=== PATIENT | female | born 1980 | race Two or more races ===

== ENCOUNTER 2018-07-01 10:27 | Day surgery (SDC) | payer OTHER ==
[2018-06-30 10:29] VITALS: BMI 21.9
[2018-07-01] MEDS ORDERED: ONDANSETRON 4 MG/2 ML VIAL IVPUSH PRN (11:34)
[2018-07-01] MEDS ORDERED: oxyCODONE HCL 5 MG TABLET PO PRN ×2 (11:34)
[2018-07-01] MEDS ORDERED: MIDAZOLAM HCL 2 MG/2 ML SINGLE DOSE VIAL ONE ×2 (11:43→12:42)
[2018-07-01] MEDS ORDERED: PROPOFOL 20 ML ONE (11:43)
[2018-07-01] MEDS ORDERED: LACTATED RINGERS SOLUTION 1,000 ML IV SCH (11:45)
--- NOTE | 2018-07-01 12:40 | HP ---
Admitting History and Physical - Primary Care Physician PCP: Luis Lancaster - Admission Chief Complaint: LASHELL 1, HSIL on pap History Source: Patient Limitations to Obtaining History: No Limitations - Past Medical History [employer]: No: Alzheimer's, CVA, Dementia, Migraine, Multiple Sclerosis, Peripheral Neuropathy, Parkinson's, Seizure, Syncope, TIA, Vertigo, Other Cardiovascular: No: AFIB, Aneurysm, Aortic Insufficiency, Aortic Stenosis, CAD, CHF, Deep Vein Thrombosis, HTN, Hyperlipdemia, IA, Mitral Insufficiency, Mitral Stenosis, Murmur, Pulmonary Hypertension, Other Pulmonary: No: Asthma, Bronchitis, Cancer, COPD, O2 Dependent, Pneumonia, Previously Intubated, Pulmonary Embolus, Pulmonary Fibrosis, Sleep Apnea, Other Gastrointestinal: No: Ascites, Cancer, Constipation, Crohn's Disease, Diverticulitis, Diverticulosis, Esophageal Varices, Gastritis, GERD, GI Bleed, Hemorrhoids, Hiatal Hernia, Inflamatory Bowel Disease, Irritable Bowel Disease, Pancreatitis, Peptic Ulcer Disease, Ulcerative Colitis, Other Hepatobiliary: No: Cirrhosis, Cholelithiasis, Cholecystitis, Choledocholithiasis , Hepatitis A, Hepatitis B, Hepatitis C, Other Renal/: No: Renal Failure, Renal Inusuff, BPH, Cancer, Hematuria, Hemodialysis , Neurogenic Bladder, Renal Calculi, UTI, Other Reproductive: No: Ectopic , Endometriosis, Fibroids, PID, Polycystic Ovary Syndrome, Postmenopausal, Other ...LMP: 06/17/18 ...: No Heme/Onc: No: Anemia, B12 Deficiency, Bleeding Disorder, Cancer, Current Chemotherapy, Current Radiation Therapy, Hemochromatosis, Hypercoaguable State, Myeloproliferative Synd, Sickle Cell Disease, Sickle Cell Trait, Thrombocytopenia, Other Infectious Disease: No: AIDS, C-Diff, Herpes Zoster, HIV, MRSA, STD's, Tuberculosis, VREF, Other Psych: No: Addictions, Anxiety, Bipolar, Depression, Panic, Psychosis, Schizophrenia, Other Musculoskeletal: No: Bursitis, Chronic low back pain, Hemiparesis, Hemiplegia, Osteoarthritis, Paraplegia, Other Rheumatology: No: Fibromyalgia, Gout, Lupus, Rheumatoid Arthritis, Sarcoidosis, Vasculitis, Other ENT: No: Allergic Rhinitis, Sinusitis, Other Dermatology: No: Basal Cell, Cellulitis, Eczema, Melanoma, Psoriasis, Squamous Cell, Other - Past Surgical History Additional Past Surgical History: D&C - Smoking History Smoking history: Never smoked - Alcohol/Substance Use Hx Alcohol Use: No Home Medications - Allergies Allergies/Adverse Reactions: Allergies Allergy/AdvReac Type Severity Reaction Status Date / Time No Known Allergies Allergy Verified 05/19/18 11:50 - Home Medications Home Medications: Ambulatory Orders Ibuprofen [Advil -] 400 mg PO QID 05/19/18 Review of Systems - Review of Systems Constitutional: denies: No Symptoms, Chills, Diaphoresis, Fever, Lethargy, Loss of Appetite, Malaise, Night Sweats, Unintentional Wgt. Loss, Weakness, Other Eyes: denies: No Symptoms, Blind Spots, Blurred Vision, Double Vision, Eye Pain , Floaters, Photophobia, Recent Change in Vision, Other HENT: denies: No Symptoms, Difficult Swallowing, Ear Discharge, Ear Pain, Epistaxis, Gingival Bleeding, Hearing Loss, Mouth Swelling, Nasal Congestion, Ocular Prosthesis, Throat Pain, Toothache, Ringing in Ears, Other Neck: denies: No Symptoms, Decreased ROM, Lumps, Pain on Movement, Stiffness, Swollen Glands, Tenderness, Other Cardiovascular: denies: No Symptoms, Chest Pain, Edema, Palpitations, Shortness of Breath, Other Respiratory: denies: No Symptoms, Cough, Exercise Intolerance, Hemoptysis, Orthopnea, PND, Snoring, SOB, SOB on Exertion, Wheezing, Other Gastrointestinal: denies: No Symptoms, Abdominal Pain, Bloating, Constipation, Diarrhea, Dysphagia, Indigestion, Melena, Nausea, Rectal Bleeding, Vomiting, Vomiting Blood, Other Genitourinary: denies: No Symptoms, Burning, Discharge, Dysuria, Flank Pain, Frequency, Hematuria, Incontinence, Lesions, Menses, Pain, Testicular Mass, Testicular Pain, Testicular Swelling, Urgency, Vaginal Bleeding, Other Breasts: denies: No Symptoms Reported, See HPI, Breast Implants, Discharge from Nipple, Lumps, Pain, Skin Changes, Other Musculoskeletal: denies: No Symptoms, Back Pain, Crepitus, Decreased ROM, Extremity Pain, Joint Pain, Joint Swelling, Muscle Pain, Muscle Cramps, Muscle Weakness, Other Integumentary: denies: No Symptoms, Blister, Bruising, Change in Color, Eczema, Erythema, Incision, Lesions, Lump, Pallor, Pruritis, Rash, Wound, Other Neurological: denies: No Symptoms, Change in LOC, Change in Speech, Confusion, Dizziness, Headache, Incoordination, Numbness, Parasthesia, Pre-Existing Deficit , Seizure, Syncope, Tremors, Unsteady Gait, Weakness, Other Endocrine: denies: No Symptoms, Excessive Sweating, Flushing, Increased Hunger, Increased Thirst, Intolerance to Cold, Intolerance to Heat, Unexplained Weight Gain, Unexplained Weight Loss, Other Hematology/Lymphatic: denies: No Symptoms, Easily Bruised, Excessive Bleeding, Swollen Glands, Other Psychiatric: denies: No Symptoms, Altered Sleep Pattern, Anxiety, Depression, Hallucinations, Panic, Paranoia, Suicidal, Other Physical Examination Vital Signs: Vital Signs Temperature 97.5 F L 07/01/18 11:00 Pulse Rate 64 07/01/18 11:00 Respiratory Rate 18 07/01/18 11:00 Blood Pressure 94/60 07/01/18 11:00 O2 Sat by Pulse Oximetry (%) 100 07/01/18 11:01 Constitutional: Yes: Well Nourished, No Distress, Calm Eyes: Yes: WNL, Conjunctiva Clear, EOM Intact HENT: Yes: WNL, Atraumatic, Normocephalic Neck: Yes: WNL, Supple, Trachea Midline Cardiovascular: Yes: WNL, Regular Rate and Rhythm Respiratory: Yes: WNL, Regular, CTA Bilaterally Gastrointestinal: Yes: WNL, Normal Bowel Sounds, Soft Musculoskeletal: Yes: WNL Extremities: Yes: WNL Edema: No Problem List - Problems (1) Dysplasia of cervix, low grade (LASHELL 1) Code(s): N87.0 - MILD CERVICAL DYSPLASIA (2) HSIL (high grade squamous intraepithelial lesion) on Pap smear of cervix Code(s): R87.613 - HIGH GRADE INTREPITH LESION CYTO SMR CRVX (HGSIL)
[2018-07-01] MEDS ORDERED: LIDOCAINE 1%/EPI 1:100000 (20 ML MULTI DOSE VIAL) IJ ONE (13:20)
--- NOTE | 2018-07-01 14:30 | OP ---
DATE OF OPERATION: 07/01/2018 PREOPERATIVE DIAGNOSES: 1. High-grade squamous intraepithelial lesion on Pap smear. 2. LASHELL-1 on cervical biopsy. 3. Discrepancy between Pap and biopsy. POSTOPERATIVE DIAGNOSES: 1. High-grade squamous intraepithelial lesion on Pap smear. 2. LASHELL-1 on cervical biopsy. 3. Discrepancy between Pap and biopsy. PROCEDURE: Colposcopy and loop electrocautery excision procedure of the cervix/cone biopsy of the cervix. SURGEON: Maria L Navarro MD ANESTHESIA: Moderate sedation and local. ESTIMATED BLOOD LOSS: 10 mL. COMPLICATIONS: None. INDICATIONS: This is a 38-year-old with history of Pap smear showing high-grade squamous intraepithelial lesion. Cervical biopsy showed LASHELL-1. ECC was negative. The patient had long history of abnormal Pap smears. She was counseled regarding surgical excision due to the discrepancy between Pap smear and cervical biopsy. Risks, benefits, indications, alternatives were discussed with patient. All questions were answered. Informed consent was signed. FINDINGS: Acetowhite epithelium was seen on the cervix at approximately 10 o'clock. There was a small area of mosaicism there. There were no other lesions. PROCEDURE: The patient was taken to the operating room, placed in the dorsal lithotomy position and moderate sedation was achieved. She was then placed in the dorsal lithotomy position in Mateo stirrups and draped. Speculum was placed in the vagina and 5% acetic acid was applied to the entire cervix and vagina. Using the colposcope, a thorough exam of the vagina and cervix was performed. Then 15 mL of 1% lidocaine with epinephrine was injected into the cervix at 3, 6, 9, and 12 o'clock. After adequate anesthesia had been achieved, a loop electrocautery excision procedure was performed using the 2.0 x 1.0 loop electrode. A posterior pass and an anterior pass was performed using the 1.0 x 1.0 loop electrode. A top-hat procedure was performed for the cone biopsy. Endocervical curettage was then performed and the entire cone bed was cauterized using the ball electrode. Excellent hemostasis was seen. For added insurance, Monsel solution was added to the cone bed. Excellent hemostasis was seen. All instruments were removed from the patient's vagina. Sponge, needle, instrument counts were correct x2. The patient was awakened and transferred in stable condition to PACU. Maria L Navarro M.D. [id number]
[2018-07-01 15:24] VITALS: BP 95/60; PULSE 73; TEMP 97.9
--- NOTE | 2018-07-03 15:45 | PATH ---
Surgical Pathology Report Patient Name: FRANCHESCA MEI [facility]. Rec. #: [id number] /Age/Gender: 1980 (Age: 38) / F Account: [id number] Location: [facility] Taken: 07/01/2018 Received: 07/02/2018 Reported: 07/03/2018 Physicians: Maria L Navarro MD Specimen(s) Received A: POSTERIOR CERVIX B: ANTERIOR CERVIX C: TOP HAT D: ENDOCERVICAL CURETTINGS Clinical History LASHELL I Final Diagnosis A. POSTERIOR CERVIX, CONE BIOPSY: CERVICAL TISSUE WITH FOCAL SQUAMOUS METAPLASIA. B. ANTERIOR CERVIX, CONE BIOPSY: CERVICAL TISSUE WITH LASHELL 3 (CERVIX INTRAEPITHELIAL NEOPLASIA GRADE 3), FOCAL, WITH GLANDULAR INVOLVEMENT. CAUTERIZED MARGINS ARE NOT INVOLVED BY HIGH GRADE DYSPLASIA. LASHELL 1 PRESENT AT THE MARGINS. Note: Intradepartmental case reviewed with concordance on diagnosis. C. TOP HAT, EXCISION: ENDOCERVICAL TISSUE WITH LASHELL 1 AND SQUAMOUS METAPLASIA. MARGINS ARE NEGATIVE FOR DYSPLASIA. D. ENDOCERVICAL CURETTINGS: ENDOCERVICAL TISSUE WITH NO SIGNIFICANT PATHOLOGIC CHANGES. Electronically Signed Saeed Bueno M.D. Gross Description A. Received in formalin labeled "posterior cervix," is a 2.1 x 0.9 x 0.3 cm unoriented portion of cervix which is partially surfaced by a rueda, shiny glistening mucosa. The specimen is inked blue, serially sectioned and entirely submitted in 2 cassettes. B. Received in formalin labeled "anterior cervix," are 2 unoriented portions of cervix which are partially surfaced by a rueda, shiny and glistening mucosa. The specimens measure 1.1 x 0.5 x 0.2 cm and 1.7 x 0.8 x 0.3 cm. The specimens are inked blue, serially sectioned and entirely submitted in 2 cassettes. C. Received in formalin labeled "top hat," are 2 rueda, unoriented portions of cervix measuring 1.1 x 0.5 x 0.2 cm and 1.2 x 0.6 x 0.4 cm. The specimens are inked blue, serially sectioned and entirely submitted in 2 cassettes. D. Received in formalin labeled "endocervical curettage," is a 1.0 x 0.9 x 0.2 cm aggregate of rueda-brown soft tissue fragments admixed with mucus. The formalin is filtered and the specimen is entirely submitted in one cassette. 07/02/201807/02/2018
== END 2018-07-01 15:45 | disposition home or self-care (01) ==
LOC: JASU-SURG 10:27
PROVIDERS: ATTEND Obstetrics & Gynecology Gynecologic Oncology
PROC: 0UBC7ZX Excision of Cervix, Via Natural or Artificial Opening, Diagnostic (ICD-10-PCS; principal; 2018-07-01 12:00)
DX: D06.7 Carcinoma in situ of other parts of cervix (principal)
CPT/HCPCS: 84703; 88305-TC; 88307-TC